=== PATIENT | female | born 1950 | race Caucasian/White ===

== ENCOUNTER → 2017-10-01 | Outpatient (CLI) | payer OTHER ==
--- NOTE | 2017-10-01 11:27 | DIAGNOSTIC IMAGING REPORT ---
(BARIUM SWALLOW) ESOPHAGUS CLINICAL HISTORY: 67 years-old Female with ABD PAIN,GASTROESOPHEAL DIS,GASTRITIS,HIATAL HERNI. History of hiatal hernia with reflux. Acute generalized abdominal pain TECHNIQUE: Barium contrast and effervescent crystals were administered to the patient under fluoroscopic examination. Multiple images were obtained and submitted for review. FLUOROSCOPY TIME: 1.2 minutes. 22 total images were submitted. COMPARISON: None. FINDINGS: During deglutition, contrast material flowed freely through the cervical esophagus. No filling defect or mucosal abnormality is identified. No abnormal stricturing or mass effect is seen. The mid to distal esophagus is well coated and distended. No abnormal stricturing or mucosal abnormality is identified. No hiatal hernia identified. There is a mild degree of tertiary contractions noted throughout the mid and distal esophagus. Incomplete esophageal emptying of the oral contrast was noted. The GE junction is normal in appearance. IMPRESSION: Mild esophageal dysmotility with otherwise unremarkable exam. The above report was generated using voice recognition software. It may contain grammatical, syntax or spelling errors. Electronically signed by: Ted Sapp M.D. 10/01/2017 11:26 AM Dictated Date/Time: 10/01/2017 11:23 AM
== END | disposition home or self-care (01) ==
LOC: C.RAD 10:37
PROVIDERS: ATTEND Nurse Practitioner Family
DX: R10.84 Generalized abdominal pain (principal); K21.9 Gastro-esophageal reflux disease without esophagitis; K44.9 Diaphragmatic hernia without obstruction or gangrene